=== PATIENT | male | born 1945 | race Caucasian/White ===

== ENCOUNTER 2019-11-09 11:13 | Emergency (ER) | payer MEDICARE ==
[~2019-11-09] VITALS: Ht 177.8 cm; Wt 89.2 kg
--- NOTE | 2019-11-09 11:27 | NUR ---
[employer] COMP[employer]: BP LT ARM 155/92 BP RT ARM 164/92
--- NOTE | 2019-11-09 11:48 | NUR ---
pt w c/o R shoulder/bicep pain x20 minutes after a 4 [address] walk. hx dissceting aaa, graft w/ 3 surgeries, last repair in 2012 at [facility]. denies cp/sob/pain at this moment. SB 56-59 on monitor no ectopy. bp stable. at [facility]. A&Ox4 gcs 15. call marian. awaiting . as
--- NOTE | 2019-11-09 12:28 | NUR ---
piv est labs sent plan for cta. as
[2019-11-09] MEDS ORDERED: SODIUM CHLORIDE FLUSH 10ML SYR IVF ONE (12:30)
[2019-11-09] MEDS ORDERED: METO50TA82 PO (12:31)
[2019-11-09] MEDS ORDERED: SIMV40TA20 PO (12:31)
[2019-11-09] MEDS ORDERED: LOSA100T14 PO (12:31)
[2019-11-09] MEDS ORDERED: TAMS-11 PO (12:31)
[2019-11-09] MEDS ORDERED: LEVO100T5 PO (12:31)
[2019-11-09] MEDS ORDERED: ASPI-496 PO (12:31)
[2019-11-09] MEDS ORDERED: CLOP75TA PO (12:31)
[2019-11-09] MEDS ORDERED: POTA15TA9 PO (12:31)
[2019-11-09 12:42] LABS: BASOPHILS # (AUTO) 0.02 x10^3/uL (0-0.1); BASOPHILS % (AUTO) 0 % (0-1); EOSINOPHILS # (AUTO) 0.09 x10^3/uL (0-0.4); EOSINOPHILS % (AUTO) 2 % (1-7); LYMPHOCYTES # (AUTO) 0.89 x10^3/uL (1-3.4); LYMPHOCYTES % (AUTO) 19 % (22-44); MD NO; MEAN CORPUSCULAR HEMOGLOBIN 32.5 pg (27.5-34.5); MEAN CORPUSCULAR HGB CONC 33.1 g/dL (33.2-36.2); MEAN PLATELET VOLUME 8.1 fL (7.4-10.4); MONOCYTES % (AUTO) 6 % (2-9); NEUTROPHILS # (AUTO) 3.36 x10^3/uL (1.8-6.8); NEUTROPHILS % (AUTO) 72 % (42-75); PLATELET COUNT 131 x10^3/uL (130-400); RED BLOOD COUNT 4.36 x10^6/uL (4.38-5.82)
[2019-11-09 13:10] LABS: ANION GAP 6 mmol/L (5-15); CALCIUM 9.3 mg/dL (8.5-10.1); CHLORIDE 107 mmol/L (98-107)
[2019-11-09 13:14] LABS: ALANINE AMINOTRANSFERASE 36 U/L (12-78); ALKALINE PHOSPHATASE 89 U/L (45-117); BILIRUBIN,TOTAL 1.1 mg/dL (0.2-1.0); CREATININE 1.31 mg/dL (0.7-1.3); TOTAL PROTEIN 8.3 g/dL (6.4-8.2)
--- NOTE | 2019-11-09 13:42 | NUR ---
pt to [facility]. as
[2019-11-09] MEDS ORDERED: OMNIPAQUE 350 MG/ML, 75ML BOTTLE ONE (14:06)
[2019-11-09 14:20] VITALS: BP 156/99
--- NOTE | 2019-11-09 14:21 | NUR ---
back from [facility]. vss. no needs at this time. awaiting restuls. as
== END 2019-11-09 15:12 | disposition home or self-care (01) ==
LOC: ED 15:05
DX: M79.621 Pain in right upper arm (principal); M25.511 Pain in right shoulder; I10 Essential (primary) hypertension
CPT/HCPCS: 36415; 71275; 74175; 80053; 85025; 99285; Q9967